=== PATIENT | female | born 1945 | race Caucasian/White ===

== ENCOUNTER 2019-04-12 10:07 | Outpatient (CLI) | payer MEDICARE, SELFPAY ==
--- NOTE | ~2019-04-12 | US_ITS ---
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 Obesity. TECHNIQUE: Sonographic imaging of the kidneys was performed with a 3.5 MHz transducer. Retroperitone al duplex sonogram of the renal arteries also obtained. FINDINGS: No focal flow abnormalities are seen in the renal arteries on color Doppler. The peak syst olic velocities at the origin of the right and left renal arteries and aorta are 102 cm per second, 6 0 cm per second, and 68 cm per second, respectively. The velocities and renal to aortic ratios are wi thin normal limits. IMPRESSION: 1. No Doppler evidence of renal artery stenosis. Reviewed, dictated and finalized at location A. COOKING MACHINE OPERATOR
== END 2019-04-12 10:08 | disposition home or self-care (01) ==
LOC: ANHIMG 10:11
PROVIDERS: PCP Family Medicine; Visit Provider Internal Medicine Cardiovascular Disease
DX: E11.59 Type 2 diabetes mellitus with other circulatory complications (principal); I10 Essential (primary) hypertension; R09.89 Other specified symptoms and signs involving the circulatory and respiratory systems
CPT/HCPCS: 93976